=== PATIENT | female | born 2000 | race Hispanic/Latino ===

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

== ENCOUNTER 2022-02-19 20:16 | Emergency (ER) | payer OTHER ==
[2022-02-19 20:58] LABS: #Eosinphils 0.1 10x3/uL (0.0-0.5); #Monocytes 0.6 10x3/uL (0.0-1.1); #Neutrophils 4.2 10x3/uL (1.5-8.4); %Basophils 0.1 % (0.0-2.0); %Eosinophils 0.9 % (0.0-6.0); %Lymphocytes 28.4 % (18.0-47.0); %Monocytes 8.2 % (0.0-10.0); %Neutrophils 62.3 % (40.0-75.0); Hemoglobin 11.9 g/dL (12.0-15.5); Mean Corpuscular HGB CONC 33.5 g/dL (32.0-36.0); Mean Corpuscular Hemoglobin 25.8 pg (27.0-33.0); Mean Platelet Volume 10.6 fl (7.4-10.4); Platelet Count 324 10x3/uL (150-450); RBC Distribution Width 15.6 % (11.5-14.5); Red Blood Cell (RBC) Count 4.61 10x6/uL (3.90-5.03); White Blood Cell (WBC) Count 6.7 10x3/uL (3.5-10.5)
[2022-02-19 21:14] LABS: ALT (SGPT) 57 U/L (8-55); AST (SGOT) 46 U/L (5-30); Albumin 4.4 g/dL (3.5-5.0); Alkaline Phosphatase 43 U/L (40-100); Anion Gap 13 mmol/L (10-20); BUN (Urea Nitrogen) 7 mg/dL (8.4-21.0); Bilirubin, Total 0.4 mg/dL (0.2-1.2); Calc. Creatinine Clearance 0 mL/min (70-130); Calcium 9.7 mg/dL (7.8-10.44); Carbon Dioxide 22 mmol/L (22-29); Chloride 108 mmol/L (98-107); Estimated GFR 114; Globulin 3.1 g/dL (2.4-3.5); Glucose 95 mg/dL (70-105); Potassium 3.6 mmol/L (3.5-5.1); Protein, Total 7.5 g/dL (6.0-8.3); Sodium 139 mmol/L (136-145)
[2022-02-19 22:15] LABS: Bilirubin Neg (Negative); Blood, Urine Negative (Negative); Clarity Clear (Clear); Glucose, Urine (Dipstick) Normal (Negative); Ketone, Urine 15 mg/dL (Negative); Leukocyte 25 (Negative); Nitrite Negative (Negative); Protein, Urine (Dipstick) 15 mg/dl (Neg-Trace); Specific Gravity, Urine 1.025 (1.005-1.030)
[2022-02-19 23:19] LABS: Bacteria/HPF 1+ HPF (None Seen); RBC/HPF None Seen HPF (0-3); Squamous Epithelial 0-3 HPF (0-3); WBC/HPF 0-3 HPF (0-3)
[2022-02-20 19:24] LABS: Chlamydia by PCR Not Detected (NotDetected); GC by PCR Not Detected (NotDetected)
== END 2022-02-20 00:25 | disposition home or self-care (01) ==
LOC: CSHERS 20:16
DX: O34.81 Maternal care for other abnormalities of pelvic organs, first trimester (principal); Z3A.01 Less than 8 weeks gestation of pregnancy
CPT/HCPCS: 76856; 80053; 81003; 81015; 84702; 85025; 86900; 86901; 87480; 87491; 87510; 87591; 87660

== ENCOUNTER 2022-02-21 11:53 | Emergency (ER) | payer OTHER | END 2022-02-21 14:05 | disposition home or self-care (01) | LOC: CSHERS 11:53 | DX: O23.41 Unspecified infection of urinary tract in pregnancy, first trimester (principal); N39.0 Urinary tract infection, site not specified; O98.811 Other maternal infectious and parasitic diseases complicating pregnancy, first trimester; B37.31 Acute candidiasis of vulva and vagina; Z3A.01 Less than 8 weeks gestation of pregnancy | CPT/HCPCS: 36415; 76856; 84702 ==

== ENCOUNTER 2022-02-25 08:43 | Emergency (ER) | payer OTHER ==
[2022-02-25 10:02] LABS: Bilirubin Neg (Negative); Blood, Urine Negative (Negative); Clarity Clear (Clear); Glucose, Urine (Dipstick) Normal (Negative); Ketone, Urine Negative (Negative); Leukocyte Negative (Negative); Nitrite Negative (Negative); Protein, Urine (Dipstick) Negative (Neg-Trace); Urobilinogen Normal mg/dL (Less than 2)
== END 2022-02-25 12:00 | disposition home or self-care (01) ==
LOC: CSHERS 08:43
DX: O99.891 Other specified diseases and conditions complicating pregnancy (principal); R10.2 Pelvic and perineal pain; Z3A.01 Less than 8 weeks gestation of pregnancy
CPT/HCPCS: 81003; 84702

== ENCOUNTER 2022-03-02 22:15 | Emergency (ER) | payer OTHER ==
[2022-03-02 23:15] LABS: #Eosinphils 0.1 10x3/uL (0.0-0.5); #Monocytes 0.7 10x3/uL (0.0-1.1); #Neutrophils 5.7 10x3/uL (1.5-8.4); %Basophils 0.2 % (0.0-2.0); %Eosinophils 0.6 % (0.0-6.0); %Lymphocytes 24.6 % (18.0-47.0); %Monocytes 7.6 % (0.0-10.0); %Neutrophils 66.8 % (40.0-75.0); Hemoglobin 12.7 g/dL (12.0-15.5); Mean Corpuscular HGB CONC 33.6 g/dL (32.0-36.0); Mean Corpuscular Hemoglobin 26.1 pg (27.0-33.0); Mean Corpuscular Volume 77.6 fl (81.6-98.3); Mean Platelet Volume 10.7 fl (7.4-10.4); Platelet Count 313 10x3/uL (150-450); RBC Distribution Width 15.4 % (11.5-14.5); Red Blood Cell (RBC) Count 4.87 10x6/uL (3.90-5.03); White Blood Cell (WBC) Count 8.6 10x3/uL (3.5-10.5)
[2022-03-02 23:30] LABS: ALT (SGPT) 34 U/L (8-55); AST (SGOT) 21 U/L (5-30); Albumin 4.4 g/dL (3.5-5.0); Alkaline Phosphatase 45 U/L (40-100); Anion Gap 12 mmol/L (10-20); BUN (Urea Nitrogen) 7 mg/dL (8.4-21.0); Bilirubin, Total 0.4 mg/dL (0.2-1.2); Calc. Creatinine Clearance 0 mL/min (70-130); Calcium 9.4 mg/dL (7.8-10.44); Carbon Dioxide 21 mmol/L (22-29); Chloride 105 mmol/L (98-107); Estimated GFR 110; Globulin 3.2 g/dL (2.4-3.5); Glucose 108 mg/dL (70-105); Potassium 3.4 mmol/L (3.5-5.1); Protein, Total 7.6 g/dL (6.0-8.3); Sodium 135 mmol/L (136-145)
[2022-03-02] MEDS ORDERED: Ondansetron PF 4 MG/2 ML Vial ONE (23:36)
[2022-03-02] MEDS ORDERED: Famotidine/PF 20 mg/2ml Vial ONE (23:37)
== END 2022-03-03 02:55 | disposition home or self-care (01) ==
LOC: CSHERS 22:15
DX: O21.9 Vomiting of pregnancy, unspecified (principal); Z3A.01 Less than 8 weeks gestation of pregnancy
CPT/HCPCS: 36415; 80053; 84702; 85025; 96361; 96374; 96375; J2405; S0028

== ENCOUNTER 2022-06-16 11:33 | Day surgery (SDC) | payer OTHER ==
[2022-06-16 12:16] VITALS: BMI 38.6
[2022-06-16] MEDS ORDERED: hydrALAZINE 20 MG/ML VIAL SLOW IVP PRN (13:17)
[2022-06-16] MEDS ORDERED: Acetaminophen 500 MG TAB PO PRN (13:47)
[2022-06-16 13:51] LABS: Bilirubin Neg (Negative); Blood, Urine Negative (Negative); Clarity Slightly Cloudy (Clear); Glucose, Urine (Dipstick) Normal (Negative); Ketone, Urine Negative (Negative); Leukocyte Negative (Negative); Nitrite Negative (Negative); Protein, Urine (Dipstick) Negative (Neg-Trace); Specific Gravity, Urine 1.015 (1.005-1.030); Urobilinogen Normal mg/dL (Less than 2)
[2022-06-16 14:00] LABS: Amphetamine Not Detected (NotDetected); Barbiturates Screen Not Detected (NotDetected); Benzodiazepine Screen Not Detected (NotDetected); Cocaine Metabolite Screen Not Detected (NotDetected); Methadone Not Detected (NotDetected); Methamphetamine Not Detected (NotDetected); Opiate Screen Not Detected (NotDetected); Oxycodone Screen Not Detected (NotDetected); Phencyclidine (PCP) Not Detected (NotDetected); THC/Cannabinoid Screen Not Detected (NotDetected); Tricyclic Screen Not Detected (NotDetected)
[2022-06-16 14:19] LABS: Bacteria/HPF Rare-Few HPF (None Seen); CAUTI Indications for Culture Pelvic or flank pain; RBC/HPF 0-3 HPF (0-3); WBC/HPF 0-3 HPF (0-3)
[2022-06-16 14:20] LABS: Urine Culture Reflex No No
[2022-06-16 15:04] LABS: Acetaminophen Less than 10.0 mcg/mL (10.0-30.0); Alcohol Less than 10 mg/dL (Less than 10); Salicylate Less than 8.0 mg/dL (15.0-30.0)
[2022-06-16 15:55] LABS: #Eosinphils 0.1 10x3/uL (0.0-0.5); #Monocytes 0.4 10x3/uL (0.0-1.1); #Neutrophils 6.8 10x3/uL (1.5-8.4); %Basophils 0.2 % (0.0-2.0); %Eosinophils 0.8 % (0.0-6.0); %Lymphocytes 17.9 % (18.0-47.0); %Monocytes 4.5 % (0.0-10.0); %Neutrophils 76.2 % (40.0-75.0); Hemoglobin 9.2 g/dL (12.0-15.5); Mean Corpuscular HGB CONC 31.8 g/dL (32.0-36.0); Mean Corpuscular Hemoglobin 25.8 pg (27.0-33.0); Mean Platelet Volume 10.7 fl (7.4-10.4); Platelet Count 272 10x3/uL (150-450); RBC Distribution Width 15.5 % (11.5-14.5); Red Blood Cell (RBC) Count 3.57 10x6/uL (3.90-5.03)
[2022-06-16 15:58] LABS: ALT (SGPT) 14 U/L (8-55); AST (SGOT) 17 U/L (5-30); Albumin 3.3 g/dL (3.5-5.0); Alkaline Phosphatase 56 U/L (40-100); Anion Gap 14 mmol/L (10-20); BUN (Urea Nitrogen) 6 mg/dL (8.4-21.0); Bilirubin, Total 0.3 mg/dL (0.2-1.2); Calc. Creatinine Clearance 231 mL/min (70-130); Carbon Dioxide 21 mmol/L (22-29); Chloride 107 mmol/L (98-107); Estimated GFR 130; Globulin 3.2 g/dL (2.4-3.5); Glucose 75 mg/dL (70-105); Potassium 3.9 mmol/L (3.5-5.1); Protein, Total 6.5 g/dL (6.0-8.3); Sodium 138 mmol/L (136-145)
[2022-06-16] MEDS ORDERED: metroNIDAZOLE 500 MG TAB PO SCH ×2 (16:45→23:00)
[2022-06-17] MEDS ORDERED: metroNIDAZOLE 500 MG TAB PO SCH (09:00)
[2022-06-17 17:58] LABS: Chlamydia by PCR *Indeterminate (NotDetected); GC by PCR *Indeterminate (NotDetected)
== END 2022-06-16 18:30 | disposition home or self-care (01) ==
LOC: CSHLD/OP 11:33
PROVIDERS: ATTEND Obstetrics & Gynecology
DX: O26.892 Other specified pregnancy related conditions, second trimester (principal); R10.12 Left upper quadrant pain; R10.32 Left lower quadrant pain; O99.342 Other mental disorders complicating pregnancy, second trimester; R45.851 Suicidal ideations; F32.A Depression, unspecified; F41.9 Anxiety disorder, unspecified; F43.10 Post-traumatic stress disorder, unspecified; O99.322 Drug use complicating pregnancy, second trimester; F12.90 Cannabis use, unspecified, uncomplicated; O23.593 Infection of other part of genital tract in pregnancy, third trimester; N89.8 Other specified noninflammatory disorders of vagina; Z79.899 Other long term (current) drug therapy; Z3A.22 22 weeks gestation of pregnancy
CPT/HCPCS: 36415; 51701; 80053; 80306; 80307; 81001; 85025; 87086; 87480; 87491; 87510; 87591; 87660; 99283

== ENCOUNTER 2022-07-15 19:15 | Day surgery (SDC) | payer OTHER ==
[2022-07-15 19:37] VITALS: BMI 40.7
[2022-07-15] MEDS ORDERED: hydrALAZINE 20 MG/ML VIAL SLOW IVP PRN (20:40)
== END 2022-07-15 22:25 | disposition home or self-care (01) ==
LOC: CSHLD/OP 19:15
PROVIDERS: ATTEND Obstetrics & Gynecology
DX: O26.892 Other specified pregnancy related conditions, second trimester (principal); O99.891 Other specified diseases and conditions complicating pregnancy; R10.30 Lower abdominal pain, unspecified; M54.50 Low back pain, unspecified; O99.322 Drug use complicating pregnancy, second trimester; F12.10 Cannabis abuse, uncomplicated; O99.342 Other mental disorders complicating pregnancy, second trimester; F41.9 Anxiety disorder, unspecified; F32.A Depression, unspecified; F43.10 Post-traumatic stress disorder, unspecified; Z79.82 Long term (current) use of aspirin; Z79.899 Other long term (current) drug therapy; Z3A.26 26 weeks gestation of pregnancy
CPT/HCPCS: 99283

== ENCOUNTER 2022-09-10 09:46 | Day surgery (SDC) | payer OTHER ==
[2022-09-10] MEDS ORDERED: Acetaminophen 500 MG TAB ONE (10:07)
[2022-09-10] MEDS ORDERED: Iron Sucrose Complex 500 MG in Sodium Chloride 0.9% 250 ML 250 ML IVPB SCH (10:15)
[2022-09-10] MEDS ORDERED: Acetaminophen 500 MG TAB PO SCH (10:15)
[2022-09-10] MEDS ORDERED: diphenhydrAMINE 25 MG CAP ONE ×2 (13:09→14:10)
== END 2022-09-10 17:20 | disposition home or self-care (01) ==
LOC: CSHSDC/OP 09:46
PROVIDERS: ATTEND Student in an Organized Health Care Education/Training Program
DX: O99.013 Anemia complicating pregnancy, third trimester (principal); D50.9 Iron deficiency anemia, unspecified; Z3A.34 34 weeks gestation of pregnancy
CPT/HCPCS: J1756; J7050

== ENCOUNTER 2022-10-01 15:33 | Day surgery (SDC) | payer OTHER ==
[2022-10-01 15:59] VITALS: BMI 39.1
[2022-10-01] MEDS ORDERED: hydrALAZINE 20 MG/ML VIAL SLOW IVP PRN (17:12)
== END 2022-10-01 17:12 | disposition home or self-care (01) ==
LOC: CSHLD/OP 15:33
PROVIDERS: ATTEND Obstetrics & Gynecology
DX: O47.1 False labor at or after 37 completed weeks of gestation (principal); Z3A.37 37 weeks gestation of pregnancy
CPT/HCPCS: 99282

== ENCOUNTER 2022-10-13 05:30 | Inpatient (IN) | payer OTHER ==
[2022-10-14] MEDS ORDERED: Bupivacaine 0.25% HCL 30 ML VIAL ONE (08:00)
[2022-10-14 17:32] VITALS: BMI 23.4
[2022-10-14] MEDS ORDERED: Carboprost 250 MCG/ML AMP IM PRN (17:38)
[2022-10-14] MEDS ORDERED: Misoprostol 200 MCG TAB PR PRN (17:38)
[2022-10-14] MEDS ORDERED: hydrALAZINE 20 MG/ML VIAL SLOW IVP PRN (17:38)
[2022-10-14] MEDS ORDERED: Promethazine HCl 25 MG/ML VIAL IM PRN (17:38)
[2022-10-14] MEDS ORDERED: Ondansetron PF 4 MG/2 ML Vial IVP PRN (17:38)
[2022-10-14] MEDS ORDERED: Tranexamic Acid 1,000 MG/10 ML VIAL IVP PRN (17:38)
[2022-10-14] MEDS ORDERED: Methylergonovine 0.2 MG/ML VIAL IM PRN (17:38)
[2022-10-14] MEDS ORDERED: NS w/ Oxytocin 30 units 500 ML IV SCH (17:45)
[2022-10-14] MEDS ORDERED: Lactated Ringer's 1,000 ML IV SCH (17:45)
[2022-10-14] MEDS ORDERED: Penicillin G Potassium 5 MILL.UNITS in Sodium Chloride 0.9% 100 ML IVPB SCH (18:00)
[2022-10-14 18:16] LABS: Hemoglobin 10.4 g/dL (12.0-15.5); Mean Corpuscular HGB CONC 31.4 g/dL (32.0-36.0); Mean Corpuscular Volume 76.4 fl (81.6-98.3); Mean Platelet Volume 11.1 fl (7.4-10.4); Platelet Count 256 10x3/uL (150-450); RBC Distribution Width 22.1 % (11.5-14.5); Red Blood Cell (RBC) Count 4.33 10x6/uL (3.90-5.03); White Blood Cell (WBC) Count 7.8 10x3/uL (3.5-10.5)
[2022-10-14] MEDS ORDERED: Misoprostol 100 MCG TAB ONE (18:24)
[2022-10-14 18:49] LABS: Syphilis Antibody Nonreactive (Nonreactive); Syphilis Antibody Index 0.03 S/CO (<1.00 Non-Reactive)
[2022-10-14 18:50] LABS: HBSAg Index 0.14 S/CO (0-0.99); Hep B Surf Ag - L&D Non-Reactive S/CO (NonReactive)
[2022-10-14 18:57] LABS: Amphetamine Not Detected (NotDetected); Barbiturates Screen Not Detected (NotDetected); Benzodiazepine Screen Not Detected (NotDetected); Cocaine Metabolite Screen Not Detected (NotDetected); Methadone Not Detected (NotDetected); Methamphetamine Not Detected (NotDetected); Opiate Screen Not Detected (NotDetected); Oxycodone Screen Not Detected (NotDetected); Phencyclidine (PCP) Not Detected (NotDetected); THC/Cannabinoid Screen Not Detected (NotDetected); Tricyclic Screen Not Detected (NotDetected)
[2022-10-14] MEDS ORDERED: Misoprostol 100 MCG TAB VAG SCH (21:00)
[2022-10-14] MEDS ORDERED: Acetaminophen 500 MG TAB PO PRN (21:26)
[2022-10-14] MEDS: Pen G 2.5 MILL.UNITS/50 ML BAG IVPB SCH (22:26)
[2022-10-14] MEDS ORDERED: fentaNYL/Ropivacaine Epidural 100 ML ONE (23:46)
[2022-10-15] MEDS ORDERED: fentaNYL 50 mcg/mL 1 mL Vial ONE (00:06)
[2022-10-15] MEDS ORDERED: fentaNYL 50 mcg/mL 1 mL Vial SLOW IVP PRN (00:30)
[2022-10-15] MEDS ORDERED: Moisturizing Cream (Eucerin) 113 GM JAR TOP PRN (02:05)
[2022-10-15] MEDS ORDERED: diphenhydrAMINE 50 MG/ML VIAL IVP PRN (02:05)
[2022-10-15] MEDS ORDERED: ePHEDrine Sulfate 50 MG/10 ML VIAL SLOW IVP PRN (02:05)
[2022-10-15] MEDS ORDERED: Acetaminophen 325 MG TAB PO PRN (02:05)
[2022-10-15] MEDS ORDERED: Naloxone HCl 0.4 mg/ml Vial IVP PRN ×2 (02:05)
[2022-10-15] MEDS ORDERED: Lactated Ringer's 500 ML IV PRN (02:05)
[2022-10-15] MEDS ORDERED: Ondansetron PF 4 MG/2 ML Vial IVP PRN (02:05)
[2022-10-15] MEDS ORDERED: Promethazine HCl 25 MG/ML VIAL IM PRN (02:05)
[2022-10-15] MEDS ORDERED: fentaNYL 2 mcg/Ropivacaine 0.2% Epidural 100 ML CADD EPIDURAL SCH (02:15)
[2022-10-15] MEDS ORDERED: Communication Order-Pharmacy FS SCH (02:15)
[2022-10-15] MEDS: Pen G 2.5 MILL.UNITS/50 ML BAG IVPB SCH (02:27)
[2022-10-15] MEDS ORDERED: CEFAZOLIN 2 GM VIAL ONE (04:14)
[2022-10-15] MEDS ORDERED: Bisacodyl 10 MG SUPP PR PRN (04:17)
[2022-10-15] MEDS ORDERED: Benzocaine-Menthol 82.5 ML CAN TOP PRN (04:17)
[2022-10-15] MEDS ORDERED: Milk Of Magnesia 30 ML UDCUP PO PRN (04:17)
[2022-10-15] MEDS ORDERED: Preparation H Ointment 28 GM TUBE PR PRN (04:17)
[2022-10-15] MEDS ORDERED: Lanolin Ointment 7 GM TUBE TOP PRN (04:17)
[2022-10-15] MEDS ORDERED: Boostrix 0.5 ML (Tdap) VIAL (>/=7 yrs of age) IM ONE (04:17)
[2022-10-15] MEDS ORDERED: hydrALAZINE 20 MG/ML VIAL SLOW IVP PRN (04:17)
[2022-10-15] MEDS ORDERED: Witch Hazel-Glycerin 1 EACH JAR TOP PRN (04:22)
[2022-10-15] MEDS ORDERED: CEFAZOLIN 1 GM in Sodium Chloride 0.9% 100 ML IVPB SCH (04:30)
[2022-10-15] MEDS ORDERED: CEFAZOLIN 2 GM in Sodium Chloride 0.9% 100 ML IVPB SCH (05:45)
[2022-10-15] MEDS: Sertraline 25 MG TAB PO SCH (14:19)
[2022-10-15] MEDS: Prenatal Vitamin 1 TAB PO SCH (14:19)
[2022-10-15] MEDS: Ibuprofen 800 MG TAB PO SCH ×3 (14:19→21:43)
[2022-10-15] MEDS: Ferrous Sulfate 325 MG TAB PO SCH ×2 (14:19→17:20)
[2022-10-15] MEDS: Docusate 100 MG CAP PO SCH ×2 (14:19→21:43)
[2022-10-16] MEDS: Ibuprofen 800 MG TAB PO SCH (05:43)
[2022-10-16 08:02] VITALS: BP 98/54; TEMP 97.7
[2022-10-16] MEDS: Ferrous Sulfate 325 MG TAB PO SCH (09:06)
[2022-10-16] MEDS: Sertraline 25 MG TAB PO SCH (09:07)
[2022-10-16] MEDS: Docusate 100 MG CAP PO SCH (09:08)
[2022-10-16] MEDS: Prenatal Vitamin 1 TAB PO SCH (09:08)
== END 2022-10-16 18:45 | disposition home or self-care (01) | DRG 807 ==
LOC: CSHLD 10-14 16:19 → CSHPP 10-15 08:20
PROVIDERS: ADMIT Family Medicine; ATTEND Family Medicine
PROC: 3E0P7VZ Introduction of Hormone into Female Reproductive, Via Natural or Artificial Opening (ICD-10-PCS; 2022-10-14)
PROC: 10E0XZZ Delivery of Products of Conception, External Approach (ICD-10-PCS; principal; 2022-10-15)
PROC: 0UQMXZZ Repair Vulva, External Approach (ICD-10-PCS; 2022-10-15)
DX: O99.824 Streptococcus B carrier state complicating childbirth (principal); Z37.0 Single live birth; Z3A.39 39 weeks gestation of pregnancy; F31.9 Bipolar disorder, unspecified; F41.9 Anxiety disorder, unspecified; E66.9 Obesity, unspecified; D50.9 Iron deficiency anemia, unspecified; O99.02 Anemia complicating childbirth; O99.214 Obesity complicating childbirth; O99.344 Other mental disorders complicating childbirth; Z79.899 Other long term (current) drug therapy; O70.0 First degree perineal laceration during delivery
CPT/HCPCS: 51702; 80306; 85027; 86780; 86850; 86900; 86901; 87340; J2540; J3010; J3490; S0020

== ENCOUNTER 2022-10-13 22:05 | Day surgery (SDC) | payer OTHER ==
[2022-10-13 22:25] VITALS: BMI 40.1
[2022-10-14] MEDS ORDERED: hydrALAZINE 20 MG/ML VIAL SLOW IVP PRN (00:17)
== END 2022-10-14 01:00 | disposition home or self-care (01) ==
LOC: CSHLD/OP 22:05
PROVIDERS: ATTEND Student in an Organized Health Care Education/Training Program
DX: O99.891 Other specified diseases and conditions complicating pregnancy (principal); R10.9 Unspecified abdominal pain; O99.820 Streptococcus B carrier state complicating pregnancy; O99.343 Other mental disorders complicating pregnancy, third trimester; F41.9 Anxiety disorder, unspecified; F31.9 Bipolar disorder, unspecified; O99.213 Obesity complicating pregnancy, third trimester; E66.9 Obesity, unspecified; O99.013 Anemia complicating pregnancy, third trimester; D50.9 Iron deficiency anemia, unspecified; Z86.59 Personal history of other mental and behavioral disorders; Z79.899 Other long term (current) drug therapy; Z3A.39 39 weeks gestation of pregnancy

== ENCOUNTER 2023-06-10 00:15 | Emergency (ER) | payer OTHER ==
[2023-06-10] MEDS ORDERED: Boostrix 0.5 ML (Tdap) VIAL (>/=7 yrs of age) ONE (01:02)
[2023-06-10] MEDS ORDERED: Amoxicillin/Potassium Clav 875 MG TAB ONE (01:02)
[2023-06-10 01:29] LABS: Pregnancy Test - Urine (BHCG) Negative (Negative)
[2023-06-10 01:30] LABS: Pregu Control Background? CLEAR/WHITE (CLR/WHITE); Pregu Control Bar Appear? YES (CONTROL BAR)
== END 2023-06-10 01:35 | disposition home or self-care (01) ==
LOC: CSHERS 00:15
DX: S51.831A Puncture wound without foreign body of right forearm, initial encounter (principal); S30.811A Abrasion of abdominal wall, initial encounter; W55.01XA Bitten by cat, initial encounter
CPT/HCPCS: 81025; 90471; 90715

== ENCOUNTER 2024-04-18 16:07 | Emergency (ER) | payer OTHER ==
[2024-04-18 17:15] LABS: Bilirubin Neg (Negative); Blood, Urine Negative (Negative); Clarity Clear (Clear); Glucose, Urine (Dipstick) Normal (Negative); Ketone, Urine Negative (Negative); Leukocyte 100 (Negative); Nitrite Negative (Negative); Protein, Urine (Dipstick) 30 mg/dl (Neg-Trace)
[2024-04-18 17:18] LABS: Pregnancy Test - Urine (BHCG) Negative (Negative); Pregu Control Background? CLEAR/WHITE (CLR/WHITE); Pregu Control Bar Appear? YES (CONTROL BAR)
[2024-04-18 17:20] LABS: Other Microscopic Description Less than 2 mL rec'd
[2024-04-18 17:43] LABS: CAUTI Indications for Culture Pregnancy; RBC/HPF 0-3 HPF (0-3)
[2024-04-18 17:46] LABS: Bacteria/HPF 2+ HPF (None Seen); Mucous/LPF 2+ LPF (<2+); Transitional Epithelial 0-3 HPF (None Seen)
[2024-04-18 17:50] LABS: Urine Culture Reflex Yes Yes
== END 2024-04-18 17:31 | disposition home or self-care (01) ==
LOC: CSHERS 16:07
DX: R35.0 Frequency of micturition (principal); Z32.02 Encounter for pregnancy test, result negative
CPT/HCPCS: 36416; 81001; 81025; 87086; 99284